=== PATIENT | female | born 1985 | race Caucasian/White ===

== ENCOUNTER 2017-12-28 21:51 | Inpatient (IN) | payer OTHER ==
[2017-12-28] MEDS: ONDANSETRON 4 MG INJ IV (22:07)
[2017-12-28] MEDS: SOD CHLORIDE 0.9% 1,000 ML IV (22:07)
[2017-12-28] MEDS: HYDROmorphONE 1 MG/ML SYG IV (22:07)
[2017-12-28 22:24] LABS: ADD MAN DIFF? NO
[2017-12-28 22:26] LABS: WHITE BLOOD COUNT 11.2 10^3/ul (4.8-10.8)
[2017-12-28 22:26] LABS: BASOPHILS % 0.4 % (0.0-2.0); EOSINOPHILS # 0.2 10^3/ul (0.0-0.5); EOSINOPHILS % 2.2 % (0.0-7.0); HEMATOCRIT 35.6 % (37.0-47.0); HEMOGLOBIN 12.1 g/dl (12.0-16.0); LYMPHOCYTES # 1.2 10^3/ul (0.8-2.9); LYMPHOCYTES % 10.3 % (15.0-51.0); MEAN CORPUSCULAR HEMOGLOBIN 29.7 pg (29.0-33.0); MEAN CORPUSCULAR VOLUME 87.5 fl (82.0-101.0); MEAN PLATELET VOLUME 9.9 fl (7.4-10.4); MONOCYTE # 0.5 10^3/ul (0.3-0.9); MONOCYTES % 4.2 % (0.0-11.0); NEUTROPHIL # 9.2 10^3/ul (1.6-7.5); NEUTROPHILS % 82.6 % (39.0-77.0); PLATELET COUNT 380 10^3/UL (140-415); RED BLOOD COUNT 4.07 10^6/ul (4.20-5.40); RED CELL DISTRIBUTION WIDTH 13.4 % (11.5-14.5)
[2017-12-28 22:44] LABS: ALANINE AMINOTRANSFERASE 48 IU/L (13-69); ALBUMIN 4.2 g/dl (3.3-4.9); ALBUMIN/GLOBULIN RATIO 0.87; ALKALINE PHOSPHATASE 126 IU/L (42-121); ANION GAP 15 (8-16); ASPARTATE AMINO TRANSFERASE 57 IU/L (15-46); BILIRUBIN,INDIRECT 0.3 mg/dl (0-1.1); BILIRUBIN,TOTAL 0.3 mg/dl (0.2-1.3); BLOOD UREA NITROGEN 15 mg/dl (7-20); CALCIUM 9.9 mg/dl (8.4-10.2); CARBON DIOXIDE 29 mmol/L (21-31); CHLORIDE 101 mmol/L (97-110); CREATININE 0.53 mg/dl (0.44-1.00); GLUCOSE 114 mg/dl (70-220); LIPASE 138 U/L (23-300); POTASSIUM 5.3 mmol/L (3.5-5.1); SODIUM 140 mmol/L (135-144)
[2017-12-29] MEDS: HYDROmorphONE 1 MG/ML SYG IV (00:06)
[2017-12-29] MEDS ORDERED: LIDOCAINE 2% VISC 15 ML CUP (00:41)
[2017-12-29] MEDS ORDERED: ACETAMINOPHEN 325 MG TAB PO (01:00)
[2017-12-29] MEDS ORDERED: NACL 0.9% 3 ML SYG IV (01:00)
[2017-12-29] MEDS ORDERED: ONDANSETRON 4 MG INJ IV (01:00)
[2017-12-29] MEDS: LIDOCAINE 2% VISC 15 ML CUP PO (01:23)
[2017-12-29] MEDS: morphine 2 MG INJ IV ×4 (02:29→21:56)
[2017-12-29] MEDS: SOD CHLORIDE 0.9% 1,000 ML IV ×3 (02:30→19:56)
[2017-12-29] MEDS: morphine 4 MG/ML VIAL IV (04:31)
[2017-12-29] MEDS: PANTOPRAZOLE 40 MG INJ IV (05:44)
[2017-12-29 06:15] LABS: ADD MAN DIFF? NO
[2017-12-29 06:19] LABS: WHITE BLOOD COUNT 9.3 10^3/ul (4.8-10.8)
[2017-12-29 06:19] LABS: BASOPHILS % 0.3 % (0.0-2.0); EOSINOPHILS # 0.3 10^3/ul (0.0-0.5); EOSINOPHILS % 3.3 % (0.0-7.0); HEMATOCRIT 35.2 % (37.0-47.0); HEMOGLOBIN 11.4 g/dl (12.0-16.0); LYMPHOCYTES # 1.5 10^3/ul (0.8-2.9); LYMPHOCYTES % 16.1 % (15.0-51.0); MEAN CORPUSCULAR HEMOGLOBIN 28.9 pg (29.0-33.0); MEAN CORPUSCULAR HGB CONC 32.4 g/dl (32.0-37.0); MEAN CORPUSCULAR VOLUME 89.1 fl (82.0-101.0); MEAN PLATELET VOLUME 9.3 fl (7.4-10.4); MONOCYTE # 0.8 10^3/ul (0.3-0.9); MONOCYTES % 8.5 % (0.0-11.0); NEUTROPHIL # 6.7 10^3/ul (1.6-7.5); NEUTROPHILS % 71.7 % (39.0-77.0); PLATELET COUNT 369 10^3/UL (140-415); RED BLOOD COUNT 3.95 10^6/ul (4.20-5.40); RED CELL DISTRIBUTION WIDTH 13.3 % (11.5-14.5)
[2017-12-29 06:45] LABS: ANION GAP 13 (8-16); BILIRUBIN,INDIRECT 0.2 mg/dl (0-1.1); BILIRUBIN,TOTAL 0.2 mg/dl (0.2-1.3); BLOOD UREA NITROGEN 12 mg/dl (7-20); CALCIUM 9.7 mg/dl (8.4-10.2); CARBON DIOXIDE 30 mmol/L (21-31); CHLORIDE 104 mmol/L (97-110); CREATININE 0.54 mg/dl (0.44-1.00); GLUCOSE 112 mg/dl (70-220); HDL CHOLESTEROL 38 mg/dl (34-82); INR 1.03; MAGNESIUM 1.9 mg/dl (1.7-2.5); PARTIAL THROMBOPLASTIN TIME 30.9 Sec (25.0-35.0); POTASSIUM 3.9 mmol/L (3.5-5.1); PROTIME 13.6 Sec (11.9-14.9); PT RATIO 1.1; SODIUM 143 mmol/L (135-144); TOTAL PROTEIN 7.5 g/dl (6.1-8.1)
[2017-12-29 07:40] LABS: ALANINE AMINOTRANSFERASE 51 IU/L (13-69); ALBUMIN 3.7 g/dl (3.3-4.9); ALBUMIN/GLOBULIN RATIO 0.97; ALKALINE PHOSPHATASE 113 IU/L (42-121); ASPARTATE AMINO TRANSFERASE 31 IU/L (15-46); CHOLESTEROL 116 mg/dl (100-200); LDL CHOLESTEROL,CALCULATED 64 mg/dl; TRIGLYCERIDES 72 mg/dl (0-149)
[2017-12-29 08:02] LABS: HEMOGLOBIN A1C 4.8 % (0-5.9)
[2017-12-29] MEDS: SALMETEROL/FLUTICASONE 250/50 INHA INH ×3 (09:00→20:48)
[2017-12-29] MEDS ORDERED: ALBUTEROL/IPRATROPIUM (NEB) 3 ML AMP HHN (09:00)
[2017-12-29] MEDS: KETOROLAC 30 MG INJ IV ×2 (12:11→19:49)
[2017-12-30] MEDS: KETOROLAC 30 MG INJ IV ×3 (03:18→16:56)
[2017-12-30] MEDS: morphine 2 MG INJ IV ×2 (04:46→18:12)
[2017-12-30] MEDS: SOD CHLORIDE 0.9% 1,000 ML IV ×4 (04:47→22:53)
[2017-12-30] MEDS: PANTOPRAZOLE 40 MG INJ IV (05:55)
[2017-12-30 06:31] LABS: ADD MAN DIFF? NO
[2017-12-30 06:35] LABS: BASOPHILS % 0.2 % (0.0-2.0); EOSINOPHILS # 0.2 10^3/ul (0.0-0.5); EOSINOPHILS % 2.1 % (0.0-7.0); HEMATOCRIT 34.7 % (37.0-47.0); HEMOGLOBIN 11.5 g/dl (12.0-16.0); LYMPHOCYTES # 1.4 10^3/ul (0.8-2.9); LYMPHOCYTES % 16.9 % (15.0-51.0); MEAN CORPUSCULAR HEMOGLOBIN 29.6 pg (29.0-33.0); MEAN CORPUSCULAR HGB CONC 33.1 g/dl (32.0-37.0); MEAN CORPUSCULAR VOLUME 89.2 fl (82.0-101.0); MEAN PLATELET VOLUME 9.2 fl (7.4-10.4); MONOCYTE # 0.7 10^3/ul (0.3-0.9); MONOCYTES % 7.7 % (0.0-11.0); NEUTROPHIL # 6.1 10^3/ul (1.6-7.5); NEUTROPHILS % 72.9 % (39.0-77.0); PLATELET COUNT 334 10^3/UL (140-415); RED BLOOD COUNT 3.89 10^6/ul (4.20-5.40); RED CELL DISTRIBUTION WIDTH 13.4 % (11.5-14.5)
[2017-12-30 06:35] LABS: WHITE BLOOD COUNT 8.4 10^3/ul (4.8-10.8)
[2017-12-30 07:06] LABS: ANION GAP 16 (8-16); BLOOD UREA NITROGEN 16 mg/dl (7-20); CALCIUM 9.6 mg/dl (8.4-10.2); CARBON DIOXIDE 29 mmol/L (21-31); CHLORIDE 104 mmol/L (97-110); CREATININE 0.62 mg/dl (0.44-1.00); GLUCOSE 89 mg/dl (70-220); MAGNESIUM 1.9 mg/dl (1.7-2.5); PHOSPHORUS 5.1 mg/dl (2.5-4.9); POTASSIUM 3.9 mmol/L (3.5-5.1); SODIUM 145 mmol/L (135-144)
[2017-12-30] MEDS: HYDROmorphONE 1 MG/ML SYG IV ×4 (07:53→22:51)
[2017-12-30] MEDS: INFLUENZA VIRUS VACCINE 0.5 ML (DISPENSING) IM* (08:43)
[2017-12-30] MEDS: SALMETEROL/FLUTICASONE 250/50 INHA INH ×2 (08:44→22:52)
[2017-12-30] MEDS ORDERED: DIATR MEGLU/DIATRIZOATE SODIUM 120 ML BTL (12:47)
[2017-12-31] MEDS: ONDANSETRON 4 MG INJ IV (02:37)
[2017-12-31] MEDS: KETOROLAC 30 MG INJ IV ×2 (02:39→18:10)
[2017-12-31] MEDS: HYDROmorphONE 1 MG/ML SYG IV ×5 (04:16→20:33)
[2017-12-31] MEDS: PANTOPRAZOLE 40 MG INJ IV (05:29)
[2017-12-31 05:53] LABS: ADD MAN DIFF? NO
[2017-12-31 05:56] LABS: WHITE BLOOD COUNT 8.8 10^3/ul (4.8-10.8)
[2017-12-31 05:56] LABS: BASOPHILS % 0.3 % (0.0-2.0); EOSINOPHILS # 0.2 10^3/ul (0.0-0.5); EOSINOPHILS % 1.9 % (0.0-7.0); HEMATOCRIT 32.8 % (37.0-47.0); HEMOGLOBIN 10.8 g/dl (12.0-16.0); LYMPHOCYTES # 1.7 10^3/ul (0.8-2.9); LYMPHOCYTES % 19.8 % (15.0-51.0); MEAN CORPUSCULAR HEMOGLOBIN 29.3 pg (29.0-33.0); MEAN CORPUSCULAR HGB CONC 32.9 g/dl (32.0-37.0); MEAN CORPUSCULAR VOLUME 88.9 fl (82.0-101.0); MEAN PLATELET VOLUME 9.2 fl (7.4-10.4); MONOCYTE # 0.7 10^3/ul (0.3-0.9); MONOCYTES % 8.2 % (0.0-11.0); NEUTROPHIL # 6.1 10^3/ul (1.6-7.5); NEUTROPHILS % 69.7 % (39.0-77.0); PLATELET COUNT 304 10^3/UL (140-415); RED BLOOD COUNT 3.69 10^6/ul (4.20-5.40); RED CELL DISTRIBUTION WIDTH 13.3 % (11.5-14.5)
[2017-12-31 06:29] LABS: ALBUMIN 3.8 g/dl (3.3-4.9); ANION GAP 17 (8-16); BLOOD UREA NITROGEN 23 mg/dl (7-20); CALCIUM 9.8 mg/dl (8.4-10.2); CARBON DIOXIDE 31 mmol/L (21-31); CHLORIDE 102 mmol/L (97-110); CREATININE 0.61 mg/dl (0.44-1.00); GLUCOSE 86 mg/dl (70-220); MAGNESIUM 1.9 mg/dl (1.7-2.5); PHOSPHORUS 5.2 mg/dl (2.5-4.9); POTASSIUM 3.7 mmol/L (3.5-5.1); SODIUM 146 mmol/L (135-144)
[2017-12-31] MEDS: SALMETEROL/FLUTICASONE 250/50 INHA INH ×2 (08:08→20:05)
[2017-12-31] MEDS: SOD CHLORIDE 0.9% 1,000 ML IV ×2 (11:52→22:39)
[2018-01-01] MEDS: HYDROmorphONE 1 MG/ML SYG IV ×6 (00:40→22:10)
[2018-01-01] MEDS: PANTOPRAZOLE 40 MG INJ IV (05:14)
[2018-01-01 05:55] LABS: ADD MAN DIFF? NO
[2018-01-01 05:56] LABS: BASOPHIL # 0.1 10^3/ul (0.0-0.1); BASOPHILS % 0.7 % (0.0-2.0); EOSINOPHILS # 0.4 10^3/ul (0.0-0.5); EOSINOPHILS % 5.6 % (0.0-7.0); HEMATOCRIT 32.8 % (37.0-47.0); HEMOGLOBIN 10.8 g/dl (12.0-16.0); LYMPHOCYTES # 2.1 10^3/ul (0.8-2.9); LYMPHOCYTES % 28.2 % (15.0-51.0); MEAN CORPUSCULAR HEMOGLOBIN 29.3 pg (29.0-33.0); MEAN CORPUSCULAR HGB CONC 32.9 g/dl (32.0-37.0); MEAN CORPUSCULAR VOLUME 88.9 fl (82.0-101.0); MEAN PLATELET VOLUME 9.5 fl (7.4-10.4); MONOCYTE # 0.7 10^3/ul (0.3-0.9); MONOCYTES % 8.8 % (0.0-11.0); NEUTROPHIL # 4.2 10^3/ul (1.6-7.5); NEUTROPHILS % 56.4 % (39.0-77.0); PLATELET COUNT 296 10^3/UL (140-415); RED BLOOD COUNT 3.69 10^6/ul (4.20-5.40); RED CELL DISTRIBUTION WIDTH 13.1 % (11.5-14.5)
[2018-01-01 05:56] LABS: WHITE BLOOD COUNT 7.5 10^3/ul (4.8-10.8)
[2018-01-01 07:14] LABS: ALBUMIN 3.5 g/dl (3.3-4.9); ANION GAP 15 (8-16); BLOOD UREA NITROGEN 21 mg/dl (7-20); CALCIUM 9.6 mg/dl (8.4-10.2); CARBON DIOXIDE 29 mmol/L (21-31); CHLORIDE 106 mmol/L (97-110); CREATININE 0.53 mg/dl (0.44-1.00); GLUCOSE 61 mg/dl (70-220); MAGNESIUM 1.7 mg/dl (1.7-2.5); PHOSPHORUS 4.5 mg/dl (2.5-4.9); SODIUM 146 mmol/L (135-144)
[2018-01-01] MEDS: SOD CHLORIDE 0.9% 1,000 ML IV ×3 (09:37→21:27)
[2018-01-01] MEDS: SALMETEROL/FLUTICASONE 250/50 INHA INH ×2 (09:42→21:26)
[2018-01-02] MEDS: HYDROmorphONE 1 MG/ML SYG IV ×6 (02:06→22:52)
[2018-01-02] MEDS: ONDANSETRON 4 MG INJ IV (03:27)
[2018-01-02] MEDS: PANTOPRAZOLE 40 MG INJ IV (06:10)
[2018-01-02 08:00] LABS: ADD MAN DIFF? NO
[2018-01-02 08:12] LABS: WHITE BLOOD COUNT 7.9 10^3/ul (4.8-10.8)
[2018-01-02 08:12] LABS: BASOPHIL # 0.1 10^3/ul (0.0-0.1); BASOPHILS % 0.6 % (0.0-2.0); EOSINOPHILS # 0.5 10^3/ul (0.0-0.5); EOSINOPHILS % 5.8 % (0.0-7.0); HEMATOCRIT 31.5 % (37.0-47.0); HEMOGLOBIN 10.6 g/dl (12.0-16.0); LYMPHOCYTES # 1.6 10^3/ul (0.8-2.9); LYMPHOCYTES % 20.6 % (15.0-51.0); MEAN CORPUSCULAR HEMOGLOBIN 29.1 pg (29.0-33.0); MEAN CORPUSCULAR HGB CONC 33.7 g/dl (32.0-37.0); MEAN CORPUSCULAR VOLUME 86.5 fl (82.0-101.0); MEAN PLATELET VOLUME 9.4 fl (7.4-10.4); MONOCYTE # 0.7 10^3/ul (0.3-0.9); MONOCYTES % 8.8 % (0.0-11.0); NEUTROPHIL # 5.1 10^3/ul (1.6-7.5); NEUTROPHILS % 63.9 % (39.0-77.0); PLATELET COUNT 276 10^3/UL (140-415); RED BLOOD COUNT 3.64 10^6/ul (4.20-5.40); RED CELL DISTRIBUTION WIDTH 12.8 % (11.5-14.5)
[2018-01-02 09:03] LABS: ANION GAP 17 (8-16); BLOOD UREA NITROGEN 9 mg/dl (7-20); CALCIUM 9.1 mg/dl (8.4-10.2); CARBON DIOXIDE 25 mmol/L (21-31); CHLORIDE 103 mmol/L (97-110); CREATININE 0.51 mg/dl (0.44-1.00); MAGNESIUM 1.3 mg/dl (1.7-2.5); PHOSPHORUS 4.1 mg/dl (2.5-4.9); SODIUM 141 mmol/L (135-144)
[2018-01-02 09:06] LABS: GLUCOSE 50 mg/dl (70-220)
[2018-01-02] MEDS: SALMETEROL/FLUTICASONE 250/50 INHA INH ×2 (10:02→21:50)
[2018-01-02] MEDS: DEXTROSE 5%-0.45% NACL 1,000 ML IV ×2 (10:10→21:51)
[2018-01-02] MEDS: MAGNESIUM SULFATE 2 GM/50 ML 50 ML IVPB (13:54)
[2018-01-02] MEDS: SOD CHLORIDE 0.9% 1,000 ML IV (14:33)
[2018-01-02] MEDS ORDERED: VITAMIN A & D 5 GM OINT PACKET TOP (19:52)
[2018-01-03] MEDS: HYDROmorphONE 1 MG/ML SYG IV ×5 (02:56→20:15)
[2018-01-03] MEDS: ACETAMINOPHEN 1000MG/100ML IV 100 ML IVPB (03:58)
[2018-01-03] MEDS: DEXTROSE 5%-0.45% NACL 1,000 ML IV ×2 (05:29→09:57)
[2018-01-03] MEDS: PANTOPRAZOLE 40 MG INJ IV (06:03)
[2018-01-03 06:44] LABS: ADD MAN DIFF? NO
[2018-01-03 06:48] LABS: BASOPHILS % 0.4 % (0.0-2.0); EOSINOPHILS # 0.6 10^3/ul (0.0-0.5); EOSINOPHILS % 7.8 % (0.0-7.0); HEMATOCRIT 31.8 % (37.0-47.0); HEMOGLOBIN 10.9 g/dl (12.0-16.0); LYMPHOCYTES # 1.5 10^3/ul (0.8-2.9); LYMPHOCYTES % 21.8 % (15.0-51.0); MEAN CORPUSCULAR HEMOGLOBIN 29.2 pg (29.0-33.0); MEAN CORPUSCULAR HGB CONC 34.3 g/dl (32.0-37.0); MEAN CORPUSCULAR VOLUME 85.3 fl (82.0-101.0); MEAN PLATELET VOLUME 9.7 fl (7.4-10.4); MONOCYTE # 0.7 10^3/ul (0.3-0.9); MONOCYTES % 9.8 % (0.0-11.0); NEUTROPHIL # 4.2 10^3/ul (1.6-7.5); NEUTROPHILS % 60.1 % (39.0-77.0); PLATELET COUNT 287 10^3/UL (140-415); RED BLOOD COUNT 3.73 10^6/ul (4.20-5.40); RED CELL DISTRIBUTION WIDTH 12.7 % (11.5-14.5)
[2018-01-03 06:48] LABS: WHITE BLOOD COUNT 7.1 10^3/ul (4.8-10.8)
[2018-01-03 07:28] LABS: ANION GAP 13 (8-16); BLOOD UREA NITROGEN 3 mg/dl (7-20); CALCIUM 8.8 mg/dl (8.4-10.2); CARBON DIOXIDE 28 mmol/L (21-31); CHLORIDE 101 mmol/L (97-110); CREATININE 0.44 mg/dl (0.44-1.00); GLUCOSE 114 mg/dl (70-220); MAGNESIUM 1.6 mg/dl (1.7-2.5); PHOSPHORUS 4.2 mg/dl (2.5-4.9); POTASSIUM 3.3 mmol/L (3.5-5.1); SODIUM 139 mmol/L (135-144)
[2018-01-03] MEDS: SALMETEROL/FLUTICASONE 250/50 INHA INH ×2 (09:57→20:15)
[2018-01-03] MEDS ORDERED: POTASSIUM CHLORIDE 50 ML IVPB (13:00)
[2018-01-03] MEDS: MAGNESIUM SULFATE 2 GM/50 ML 50 ML IVPB (14:25)
[2018-01-03] MEDS: ONDANSETRON 4 MG INJ IV ×2 (14:42→20:54)
[2018-01-03] MEDS: POTASSIUM CHLORIDE 40 MEQ in DEXTROSE 5% 250 ML IVPB (16:39)
[2018-01-04] MEDS: DEXTROSE 5%-0.45% NACL 1,000 ML IV ×4 (00:19→21:33)
[2018-01-04] MEDS: HYDROmorphONE 1 MG/ML SYG IV ×6 (00:20→22:00)
[2018-01-04] MEDS: ONDANSETRON 4 MG INJ IV ×3 (05:36→17:56)
[2018-01-04] MEDS: PANTOPRAZOLE 40 MG INJ IV ×2 (05:36→17:58)
[2018-01-04] MEDS: SALMETEROL/FLUTICASONE 250/50 INHA INH ×2 (09:39→20:13)
[2018-01-04] MEDS: DIPHENHYDRAMINE 50 MG INJ IV (20:33)
[2018-01-05] MEDS: HYDROmorphONE 1 MG/ML SYG IV ×5 (02:41→20:14)
[2018-01-05] MEDS: DIPHENHYDRAMINE 50 MG INJ IV ×3 (04:00→21:28)
[2018-01-05] MEDS: PANTOPRAZOLE 40 MG INJ IV ×2 (05:31→16:53)
[2018-01-05 06:01] LABS: ADD MAN DIFF? NO
[2018-01-05 06:03] LABS: BASOPHILS % 0.3 % (0.0-2.0); EOSINOPHILS # 0.5 10^3/ul (0.0-0.5); EOSINOPHILS % 8.6 % (0.0-7.0); HEMOGLOBIN 11.2 g/dl (12.0-16.0); LYMPHOCYTES # 1.5 10^3/ul (0.8-2.9); LYMPHOCYTES % 24.3 % (15.0-51.0); MEAN CORPUSCULAR HEMOGLOBIN 29.6 pg (29.0-33.0); MEAN CORPUSCULAR HGB CONC 33.9 g/dl (32.0-37.0); MEAN CORPUSCULAR VOLUME 87.1 fl (82.0-101.0); MEAN PLATELET VOLUME 10.2 fl (7.4-10.4); MONOCYTE # 0.6 10^3/ul (0.3-0.9); MONOCYTES % 9.9 % (0.0-11.0); NEUTROPHIL # 3.5 10^3/ul (1.6-7.5); NEUTROPHILS % 56.7 % (39.0-77.0); PLATELET COUNT 306 10^3/UL (140-415); RED BLOOD COUNT 3.79 10^6/ul (4.20-5.40); RED CELL DISTRIBUTION WIDTH 13.1 % (11.5-14.5)
[2018-01-05 06:03] LABS: WHITE BLOOD COUNT 6.2 10^3/ul (4.8-10.8)
[2018-01-05 06:35] LABS: CARBON DIOXIDE 30 mmol/L (21-31); CHLORIDE 102 mmol/L (97-110); CREATININE 0.54 mg/dl (0.44-1.00); GLUCOSE 110 mg/dl (70-220); MAGNESIUM 1.4 mg/dl (1.7-2.5); PHOSPHORUS 4.3 mg/dl (2.5-4.9); SODIUM 142 mmol/L (135-144)
[2018-01-05 06:44] LABS: BLOOD UREA NITROGEN < 2 mg/dl (7-20)
[2018-01-05 06:51] LABS: ANION GAP 13 (8-16)
[2018-01-05 06:55] LABS: POTASSIUM 3.4 mmol/L (3.5-5.1)
[2018-01-05] MEDS: DEXTROSE 5%-0.45% NACL 1,000 ML IV ×2 (08:33→16:52)
[2018-01-05] MEDS: SALMETEROL/FLUTICASONE 250/50 INHA INH ×2 (08:33→20:15)
[2018-01-05] MEDS ORDERED: POTASSIUM CHLORIDE 40 MEQ in DEXTROSE 5% 250 ML IVPB (10:00)
[2018-01-05] MEDS: POTASSIUM CHLORIDE 40 MEQ in DEXTROSE 5% 250 ML IVPB (10:38)
[2018-01-05] MEDS ORDERED: VITAMIN A & D 5 GM OINT PACKET TOP (21:51)
[2018-01-06] MEDS: DEXTROSE 5%-0.45% NACL 1,000 ML IV ×2 (01:24→12:34)
[2018-01-06] MEDS: HYDROmorphONE 1 MG/ML SYG IV ×5 (01:24→20:27)
[2018-01-06] MEDS: PANTOPRAZOLE 40 MG INJ IV ×2 (05:23→17:40)
[2018-01-06 05:44] LABS: ADD MAN DIFF? NO
[2018-01-06 05:47] LABS: WHITE BLOOD COUNT 5.5 10^3/ul (4.8-10.8)
[2018-01-06 05:47] LABS: BASOPHILS % 0.5 % (0.0-2.0); EOSINOPHILS # 0.6 10^3/ul (0.0-0.5); EOSINOPHILS % 11.6 % (0.0-7.0); HEMATOCRIT 35.6 % (37.0-47.0); HEMOGLOBIN 11.8 g/dl (12.0-16.0); LYMPHOCYTES # 1.9 10^3/ul (0.8-2.9); LYMPHOCYTES % 33.6 % (15.0-51.0); MEAN CORPUSCULAR HEMOGLOBIN 28.9 pg (29.0-33.0); MEAN CORPUSCULAR HGB CONC 33.1 g/dl (32.0-37.0); MEAN PLATELET VOLUME 10.1 fl (7.4-10.4); MONOCYTE # 0.6 10^3/ul (0.3-0.9); MONOCYTES % 11.6 % (0.0-11.0); NEUTROPHIL # 2.4 10^3/ul (1.6-7.5); NEUTROPHILS % 42.5 % (39.0-77.0); PLATELET COUNT 311 10^3/UL (140-415); RED BLOOD COUNT 4.09 10^6/ul (4.20-5.40); RED CELL DISTRIBUTION WIDTH 13.2 % (11.5-14.5)
[2018-01-06 06:11] LABS: ANION GAP 13 (8-16); BLOOD UREA NITROGEN 2 mg/dl (7-20); CARBON DIOXIDE 29 mmol/L (21-31); CHLORIDE 104 mmol/L (97-110); CREATININE 0.51 mg/dl (0.44-1.00); GLUCOSE 102 mg/dl (70-220); MAGNESIUM 1.5 mg/dl (1.7-2.5); PHOSPHORUS 4.3 mg/dl (2.5-4.9); POTASSIUM 3.6 mmol/L (3.5-5.1); SODIUM 142 mmol/L (135-144)
[2018-01-06] MEDS: DIPHENHYDRAMINE 50 MG INJ IV ×3 (06:36→18:49)
[2018-01-06] MEDS: SALMETEROL/FLUTICASONE 250/50 INHA INH ×3 (09:00→20:27)
[2018-01-06] MEDS ORDERED: POTASSIUM CHLORIDE 50 ML IVPB (11:00)
[2018-01-06] MEDS: MAGNESIUM SULFATE 2 GM/50 ML 50 ML IVPB (12:34)
[2018-01-06] MEDS: POTASSIUM CHLORIDE 40 MEQ in SOD CHLORIDE 0.9% 250 ML IV (14:24)
[2018-01-07] MEDS: HYDROmorphONE 1 MG/ML SYG IV ×5 (02:08→19:50)
[2018-01-07] MEDS: DEXTROSE 5%-0.45% NACL 1,000 ML IV ×3 (05:21→19:57)
[2018-01-07] MEDS: PANTOPRAZOLE 40 MG INJ IV ×2 (05:21→17:25)
[2018-01-07] MEDS: DIPHENHYDRAMINE 50 MG INJ IV ×3 (05:23→21:32)
[2018-01-07 07:14] LABS: ALBUMIN 3.6 g/dl (3.3-4.9); ANION GAP 13 (8-16); BLOOD UREA NITROGEN 3 mg/dl (7-20); CALCIUM 9.3 mg/dl (8.4-10.2); CARBON DIOXIDE 29 mmol/L (21-31); CHLORIDE 102 mmol/L (97-110); CREATININE 0.54 mg/dl (0.44-1.00); GLUCOSE 96 mg/dl (70-220); MAGNESIUM 1.7 mg/dl (1.7-2.5); PHOSPHORUS 4.7 mg/dl (2.5-4.9); POTASSIUM 3.3 mmol/L (3.5-5.1); SODIUM 141 mmol/L (135-144)
[2018-01-07] MEDS: SALMETEROL/FLUTICASONE 250/50 INHA INH ×2 (08:33→20:00)
[2018-01-07] MEDS ORDERED: POTASSIUM CHLORIDE 50 ML IVPB (14:00)
[2018-01-07] MEDS: NA PHOSPHATE/BIPHOS 133 ML ENEMA PR (14:04)
[2018-01-07] MEDS: KCL 40 MEQ in NS 250 ML IVPB X1 IVPB (15:15)
[2018-01-07] MEDS ORDERED: VITAMIN A & D 5 GM OINT PACKET TOP (15:34)
[2018-01-08] MEDS: HYDROmorphONE 1 MG/ML SYG IV ×5 (03:34→22:22)
[2018-01-08] MEDS: PANTOPRAZOLE 40 MG INJ IV ×2 (05:38→17:07)
[2018-01-08] MEDS: DEXTROSE 5%-0.45% NACL 1,000 ML IV ×3 (05:40→21:27)
[2018-01-08 07:03] LABS: ALBUMIN 3.3 g/dl (3.3-4.9); ANION GAP 12 (8-16); BLOOD UREA NITROGEN 2 mg/dl (7-20); CARBON DIOXIDE 28 mmol/L (21-31); CHLORIDE 105 mmol/L (97-110); CREATININE 0.49 mg/dl (0.44-1.00); GLUCOSE 105 mg/dl (70-220); MAGNESIUM 1.5 mg/dl (1.7-2.5); PHOSPHORUS 4.5 mg/dl (2.5-4.9); POTASSIUM 3.6 mmol/L (3.5-5.1); SODIUM 141 mmol/L (135-144)
[2018-01-08] MEDS: SALMETEROL/FLUTICASONE 250/50 INHA INH ×2 (08:25→21:24)
[2018-01-08] MEDS: DIPHENHYDRAMINE 50 MG INJ IV ×2 (10:28→21:24)
[2018-01-08] MEDS: MAGNESIUM SULFATE 2 GM/50 ML 50 ML IVPB (11:43)
[2018-01-08] MEDS: MAGNESIUM CITRATE 300 ML BTL PO (17:05)
[2018-01-09] MEDS: HYDROmorphONE 1 MG/ML SYG IV ×5 (02:24→19:55)
[2018-01-09] MEDS: DIPHENHYDRAMINE 50 MG INJ IV ×3 (04:38→21:36)
[2018-01-09] MEDS: PANTOPRAZOLE 40 MG INJ IV ×2 (04:38→17:46)
[2018-01-09 07:11] LABS: ALBUMIN 3.7 g/dl (3.3-4.9); ANION GAP 15 (8-16); BLOOD UREA NITROGEN 2 mg/dl (7-20); CALCIUM 9.2 mg/dl (8.4-10.2); CARBON DIOXIDE 29 mmol/L (21-31); CHLORIDE 101 mmol/L (97-110); CREATININE 0.51 mg/dl (0.44-1.00); GLUCOSE 88 mg/dl (70-220); MAGNESIUM 1.9 mg/dl (1.7-2.5); PHOSPHORUS 3.8 mg/dl (2.5-4.9); POTASSIUM 3.8 mmol/L (3.5-5.1); SODIUM 141 mmol/L (135-144)
[2018-01-09] MEDS: SALMETEROL/FLUTICASONE 250/50 INHA INH ×2 (09:41→20:00)
[2018-01-10] MEDS: HYDROmorphONE 1 MG/ML SYG IV ×4 (00:47→22:25)
[2018-01-10] MEDS: PANTOPRAZOLE 40 MG INJ IV ×2 (05:17→17:34)
[2018-01-10 07:08] LABS: ANION GAP 12 (8-16); BLOOD UREA NITROGEN 3 mg/dl (7-20); CALCIUM 9.6 mg/dl (8.4-10.2); CARBON DIOXIDE 30 mmol/L (21-31); CHLORIDE 105 mmol/L (97-110); CREATININE 0.54 mg/dl (0.44-1.00); GLUCOSE 83 mg/dl (70-220); MAGNESIUM 1.7 mg/dl (1.7-2.5); PHOSPHORUS 5.4 mg/dl (2.5-4.9); POTASSIUM 4.3 mmol/L (3.5-5.1); SODIUM 143 mmol/L (135-144)
[2018-01-10] MEDS: DIPHENHYDRAMINE 50 MG INJ IV ×2 (07:57→21:03)
[2018-01-10] MEDS: SALMETEROL/FLUTICASONE 250/50 INHA INH ×2 (07:57→20:21)
[2018-01-11] MEDS: HYDROmorphONE 1 MG/ML SYG IV ×5 (03:28→21:41)
[2018-01-11] MEDS: PANTOPRAZOLE 40 MG INJ IV ×2 (05:34→17:00)
[2018-01-11] MEDS: SALMETEROL/FLUTICASONE 250/50 INHA INH ×2 (08:31→20:45)
[2018-01-11] MEDS: DIPHENHYDRAMINE 50 MG INJ IV ×3 (09:45→23:14)
[2018-01-12] MEDS: PANTOPRAZOLE 40 MG INJ IV ×2 (05:42→17:22)
[2018-01-12] MEDS: HYDROmorphONE 1 MG/ML SYG IV ×3 (06:13→20:01)
[2018-01-12] MEDS: DIPHENHYDRAMINE 50 MG INJ IV ×2 (08:24→15:11)
[2018-01-12] MEDS: SALMETEROL/FLUTICASONE 250/50 INHA INH ×2 (08:24→21:53)
[2018-01-12] MEDS: HYDROmorphONE 0.5 MG/0.5 ML SYG IV (12:36)
[2018-01-12] MEDS: ONDANSETRON 4 MG INJ IV (16:30)
[2018-01-12] MEDS: SOD CHLORIDE 0.9% 1,000 ML IV (20:02)
[2018-01-12] MEDS: DOCUSATE SODIUM 100 MG CAP PO (21:53)
[2018-01-13] MEDS: HYDROmorphONE 1 MG/ML SYG IV ×2 (02:31→06:34)
[2018-01-13] MEDS: PANTOPRAZOLE 40 MG INJ IV ×2 (06:34→17:45)
[2018-01-13] MEDS: SALMETEROL/FLUTICASONE 250/50 INHA INH ×2 (09:03→21:14)
[2018-01-13] MEDS: DIPHENHYDRAMINE 50 MG INJ IV ×2 (09:04→15:36)
[2018-01-13] MEDS: DOCUSATE SODIUM 100 MG CAP PO ×2 (09:04→21:00)
[2018-01-13] MEDS: SOD CHLORIDE 0.9% 1,000 ML IV ×2 (09:04→21:00)
[2018-01-13] MEDS: HYDROmorphONE 2 MG/ML SYG IV ×3 (14:05→22:45)
[2018-01-13] MEDS ORDERED: VITAMIN A & D 5 GM OINT PACKET TOP (16:22)
[2018-01-13] MEDS: LORAZEPAM 2 MG INJ IV (22:11)
[2018-01-14] MEDS: DIPHENHYDRAMINE 50 MG INJ IV ×4 (00:09→20:57)
[2018-01-14] MEDS: SOD CHLORIDE 0.9% 1,000 ML IV (00:09)
[2018-01-14] MEDS: PANTOPRAZOLE 40 MG INJ IV ×2 (05:22→17:41)
[2018-01-14] MEDS: HYDROmorphONE 2 MG/ML SYG IV (06:05)
[2018-01-14] MEDS: ONDANSETRON 4 MG INJ IV (06:05)
[2018-01-14 06:09] LABS: ADD MAN DIFF? NO
[2018-01-14 06:24] LABS: WHITE BLOOD COUNT 6.2 10^3/ul (4.8-10.8)
[2018-01-14 06:24] LABS: BASOPHILS % 0.6 % (0.0-2.0); EOSINOPHILS # 0.6 10^3/ul (0.0-0.5); EOSINOPHILS % 9.8 % (0.0-7.0); HEMATOCRIT 35.1 % (37.0-47.0); HEMOGLOBIN 11.5 g/dl (12.0-16.0); LYMPHOCYTES # 1.9 10^3/ul (0.8-2.9); LYMPHOCYTES % 30.8 % (15.0-51.0); MEAN CORPUSCULAR HEMOGLOBIN 28.8 pg (29.0-33.0); MEAN CORPUSCULAR HGB CONC 32.8 g/dl (32.0-37.0); MEAN PLATELET VOLUME 9.5 fl (7.4-10.4); MONOCYTE # 0.6 10^3/ul (0.3-0.9); MONOCYTES % 10.3 % (0.0-11.0); NEUTROPHILS % 48.3 % (39.0-77.0); PLATELET COUNT 266 10^3/UL (140-415); RED BLOOD COUNT 3.99 10^6/ul (4.20-5.40); RED CELL DISTRIBUTION WIDTH 13.2 % (11.5-14.5)
[2018-01-14 07:00] LABS: BLOOD UREA NITROGEN 6 mg/dl (7-20); CALCIUM 9.5 mg/dl (8.4-10.2); CARBON DIOXIDE 25 mmol/L (21-31); CHLORIDE 107 mmol/L (97-110); CREATININE 0.51 mg/dl (0.44-1.00); GLUCOSE 85 mg/dl (70-220); MAGNESIUM 1.4 mg/dl (1.7-2.5); PHOSPHORUS 4.8 mg/dl (2.5-4.9); SODIUM 140 mmol/L (135-144)
[2018-01-14 07:47] LABS: ANION GAP 12 (8-16); POTASSIUM 4.1 mmol/L (3.5-5.1)
[2018-01-14] MEDS: DOCUSATE SODIUM 100 MG CAP PO ×2 (08:37→20:55)
[2018-01-14] MEDS: SALMETEROL/FLUTICASONE 250/50 INHA INH ×2 (08:38→20:55)
[2018-01-14] MEDS: MAGNESIUM SULFATE 2 GM/50 ML 50 ML IVPB (13:13)
[2018-01-14] MEDS: HYDROmorphONE 0.5 MG/0.5 ML SYG IV ×3 (13:14→22:17)
[2018-01-14] MEDS: DEXTROSE 5%-0.45% NACL 1,000 ML IV (16:01)
[2018-01-15] MEDS: HYDROmorphONE 0.5 MG/0.5 ML SYG IV ×4 (04:02→21:31)
[2018-01-15] MEDS: DEXTROSE 5%-0.45% NACL 1,000 ML IV ×2 (04:04→17:36)
[2018-01-15] MEDS: PANTOPRAZOLE 40 MG INJ IV ×2 (05:22→17:36)
[2018-01-15 06:37] LABS: ADD MAN DIFF? NO
[2018-01-15 06:41] LABS: BASOPHILS % 0.6 % (0.0-2.0); EOSINOPHILS # 0.6 10^3/ul (0.0-0.5); EOSINOPHILS % 12.1 % (0.0-7.0); HEMATOCRIT 35.1 % (37.0-47.0); HEMOGLOBIN 11.5 g/dl (12.0-16.0); LYMPHOCYTES # 1.6 10^3/ul (0.8-2.9); LYMPHOCYTES % 31.3 % (15.0-51.0); MEAN CORPUSCULAR HGB CONC 32.8 g/dl (32.0-37.0); MEAN CORPUSCULAR VOLUME 88.4 fl (82.0-101.0); MEAN PLATELET VOLUME 9.6 fl (7.4-10.4); MONOCYTE # 0.5 10^3/ul (0.3-0.9); MONOCYTES % 9.1 % (0.0-11.0); NEUTROPHIL # 2.3 10^3/ul (1.6-7.5); NEUTROPHILS % 46.9 % (39.0-77.0); PLATELET COUNT 291 10^3/UL (140-415); RED BLOOD COUNT 3.97 10^6/ul (4.20-5.40); RED CELL DISTRIBUTION WIDTH 13.1 % (11.5-14.5)
[2018-01-15 07:09] LABS: ANION GAP 13 (8-16); BLOOD UREA NITROGEN 4 mg/dl (7-20); CALCIUM 9.6 mg/dl (8.4-10.2); CARBON DIOXIDE 31 mmol/L (21-31); CHLORIDE 104 mmol/L (97-110); GLUCOSE 95 mg/dl (70-220); MAGNESIUM 1.7 mg/dl (1.7-2.5); PHOSPHORUS 4.9 mg/dl (2.5-4.9); POTASSIUM 4.7 mmol/L (3.5-5.1); SODIUM 143 mmol/L (135-144)
[2018-01-15] MEDS: SALMETEROL/FLUTICASONE 250/50 INHA INH ×2 (08:55→22:13)
[2018-01-15] MEDS: DOCUSATE SODIUM 100 MG CAP PO ×2 (08:55→21:30)
[2018-01-15] MEDS: DIPHENHYDRAMINE 50 MG INJ IV ×3 (09:52→23:46)
[2018-01-16] MEDS: HYDROmorphONE 0.5 MG/0.5 ML SYG IV ×6 (02:00→19:58)
[2018-01-16] MEDS: DEXTROSE 5%-0.45% NACL 1,000 ML IV ×2 (06:00→17:55)
[2018-01-16] MEDS: PANTOPRAZOLE 40 MG INJ IV ×2 (06:10→17:55)
[2018-01-16] MEDS: SALMETEROL/FLUTICASONE 250/50 INHA INH ×2 (09:18→20:36)
[2018-01-16] MEDS: DOCUSATE SODIUM 100 MG CAP PO ×2 (09:18→20:35)
[2018-01-16] MEDS: DIPHENHYDRAMINE 50 MG INJ IV ×2 (12:19→18:37)
[2018-01-17] MEDS: HYDROmorphONE 0.5 MG/0.5 ML SYG IV ×6 (00:41→21:28)
[2018-01-17] MEDS: PANTOPRAZOLE 40 MG INJ IV ×2 (05:25→17:46)
[2018-01-17] MEDS: DIPHENHYDRAMINE 50 MG INJ IV ×2 (06:01→22:18)
[2018-01-17] MEDS: DEXTROSE 5%-0.45% NACL 1,000 ML IV ×3 (06:01→19:49)
[2018-01-17] MEDS: DOCUSATE SODIUM 100 MG CAP PO ×3 (08:31→20:58)
[2018-01-17] MEDS: SALMETEROL/FLUTICASONE 250/50 INHA INH ×2 (08:31→20:57)
[2018-01-17] MEDS: ONDANSETRON 4 MG INJ IV (12:50)
[2018-01-18] MEDS: HYDROmorphONE 0.5 MG/0.5 ML SYG IV ×6 (01:31→22:44)
[2018-01-18] MEDS: ONDANSETRON 4 MG INJ IV ×2 (04:52→09:17)
[2018-01-18] MEDS: PANTOPRAZOLE 40 MG INJ IV ×2 (05:45→17:30)
[2018-01-18] MEDS: DOCUSATE SODIUM 100 MG CAP PO ×2 (09:00→20:40)
[2018-01-18] MEDS: SALMETEROL/FLUTICASONE 250/50 INHA INH ×2 (09:17→20:41)
[2018-01-18] MEDS: DEXTROSE 5%-0.45% NACL 1,000 ML IV (09:20)
[2018-01-18] MEDS: DIPHENHYDRAMINE 50 MG INJ IV ×2 (16:53→23:51)
[2018-01-19] MEDS: DEXTROSE 5%-0.45% NACL 1,000 ML IV ×2 (05:14→21:23)
[2018-01-19] MEDS: PANTOPRAZOLE 40 MG INJ IV ×2 (05:21→17:21)
[2018-01-19 06:06] LABS: ADD MAN DIFF? NO
[2018-01-19 06:14] LABS: WHITE BLOOD COUNT 11.9 10^3/ul (4.8-10.8)
[2018-01-19 06:14] LABS: BASOPHILS % 0.3 % (0.0-2.0); EOSINOPHILS # 0.6 10^3/ul (0.0-0.5); EOSINOPHILS % 4.6 % (0.0-7.0); HEMATOCRIT 33.6 % (37.0-47.0); HEMOGLOBIN 11.4 g/dl (12.0-16.0); LYMPHOCYTES # 1.7 10^3/ul (0.8-2.9); LYMPHOCYTES % 14.3 % (15.0-51.0); MEAN CORPUSCULAR HEMOGLOBIN 28.7 pg (29.0-33.0); MEAN CORPUSCULAR HGB CONC 33.9 g/dl (32.0-37.0); MEAN CORPUSCULAR VOLUME 84.6 fl (82.0-101.0); MEAN PLATELET VOLUME 9.7 fl (7.4-10.4); MONOCYTE # 0.8 10^3/ul (0.3-0.9); MONOCYTES % 6.4 % (0.0-11.0); NEUTROPHIL # 8.8 10^3/ul (1.6-7.5); NEUTROPHILS % 74.2 % (39.0-77.0); PLATELET COUNT 243 10^3/UL (140-415); RED BLOOD COUNT 3.97 10^6/ul (4.20-5.40); RED CELL DISTRIBUTION WIDTH 13.1 % (11.5-14.5)
[2018-01-19 06:50] LABS: ANION GAP 13 (8-16); BLOOD UREA NITROGEN 4 mg/dl (7-20); CARBON DIOXIDE 29 mmol/L (21-31); CHLORIDE 104 mmol/L (97-110); CREATININE 0.54 mg/dl (0.44-1.00); GLUCOSE 104 mg/dl (70-220); MAGNESIUM 1.3 mg/dl (1.7-2.5); PHOSPHORUS 3.7 mg/dl (2.5-4.9); POTASSIUM 3.7 mmol/L (3.5-5.1); SODIUM 142 mmol/L (135-144)
[2018-01-19] MEDS: HYDROmorphONE 0.5 MG/0.5 ML SYG IV ×4 (07:52→23:17)
[2018-01-19] MEDS: DOCUSATE SODIUM 100 MG CAP PO ×2 (08:46→21:00)
[2018-01-19] MEDS: SALMETEROL/FLUTICASONE 250/50 INHA INH ×2 (08:46→21:23)
[2018-01-19] MEDS: MAGNESIUM SULFATE 2 GM/50 ML 50 ML IVPB (11:30)
[2018-01-19] MEDS: DIPHENHYDRAMINE 50 MG INJ IV (21:42)
[2018-01-19] MEDS: ONDANSETRON 4 MG INJ IV (23:17)
[2018-01-20] MEDS: PANTOPRAZOLE 40 MG INJ IV ×2 (03:55→17:54)
[2018-01-20] MEDS: HYDROmorphONE 0.5 MG/0.5 ML SYG IV ×4 (03:56→17:54)
[2018-01-20 06:44] LABS: ADD MAN DIFF? NO
[2018-01-20 06:55] LABS: HEMOGLOBIN 11.1 g/dl (12.0-16.0); MEAN CORPUSCULAR VOLUME 85.9 fl (82.0-101.0)
[2018-01-20 07:03] LABS: BASOPHILS % 0.6 % (0.0-2.0); EOSINOPHILS # 0.8 10^3/ul (0.0-0.5); EOSINOPHILS % 12.3 % (0.0-7.0); LYMPHOCYTES # 2.3 10^3/ul (0.8-2.9); LYMPHOCYTES % 34.4 % (15.0-51.0); MEAN CORPUSCULAR HEMOGLOBIN 28.9 pg (29.0-33.0); MEAN CORPUSCULAR HGB CONC 33.6 g/dl (32.0-37.0); MEAN PLATELET VOLUME 9.7 fl (7.4-10.4); MONOCYTE # 0.6 10^3/ul (0.3-0.9); MONOCYTES % 8.5 % (0.0-11.0); NEUTROPHILS % 44.2 % (39.0-77.0); PLATELET COUNT 255 10^3/UL (140-415); RED BLOOD COUNT 3.84 10^6/ul (4.20-5.40); RED CELL DISTRIBUTION WIDTH 12.9 % (11.5-14.5)
[2018-01-20 07:03] LABS: WHITE BLOOD COUNT 6.7 10^3/ul (4.8-10.8)
[2018-01-20 07:14] LABS: ANION GAP 14 (8-16); BLOOD UREA NITROGEN 4 mg/dl (7-20); CARBON DIOXIDE 31 mmol/L (21-31); CHLORIDE 103 mmol/L (97-110); CREATININE 0.55 mg/dl (0.44-1.00); GLUCOSE 98 mg/dl (70-220); MAGNESIUM 1.7 mg/dl (1.7-2.5); POTASSIUM 3.5 mmol/L (3.5-5.1); SODIUM 144 mmol/L (135-144)
[2018-01-20] MEDS: DOCUSATE SODIUM 100 MG CAP PO ×2 (08:41→20:46)
[2018-01-20] MEDS: SALMETEROL/FLUTICASONE 250/50 INHA INH ×2 (08:41→20:46)
[2018-01-20] MEDS: DEXTROSE 5%-0.45% NACL 1,000 ML IV ×2 (08:42→21:30)
[2018-01-20] MEDS: DIPHENHYDRAMINE 50 MG INJ IV ×2 (09:24→15:39)
[2018-01-21] MEDS: HYDROmorphONE 0.5 MG/0.5 ML SYG IV ×5 (02:31→21:20)
[2018-01-21] MEDS: DIPHENHYDRAMINE 50 MG INJ IV ×2 (04:09→14:29)
[2018-01-21] MEDS: PANTOPRAZOLE 40 MG INJ IV ×2 (04:51→17:21)
[2018-01-21] MEDS: DEXTROSE 5%-0.45% NACL 1,000 ML IV ×2 (07:37→21:20)
[2018-01-21] MEDS: DOCUSATE SODIUM 100 MG CAP PO ×2 (08:46→21:00)
[2018-01-21] MEDS: SALMETEROL/FLUTICASONE 250/50 INHA INH ×2 (08:48→21:20)
[2018-01-22] MEDS: HYDROmorphONE 0.5 MG/0.5 ML SYG IV ×5 (01:41→20:21)
[2018-01-22] MEDS ORDERED: VITAMIN A & D 5 GM OINT PACKET TOP (02:05)
[2018-01-22] MEDS: DIPHENHYDRAMINE 50 MG INJ IV ×2 (03:16→16:57)
[2018-01-22] MEDS: PANTOPRAZOLE 40 MG INJ IV ×2 (05:07→16:58)
[2018-01-22] MEDS: DOCUSATE SODIUM 100 MG CAP PO ×2 (09:00→20:21)
[2018-01-22] MEDS: SALMETEROL/FLUTICASONE 250/50 INHA INH ×2 (09:18→20:21)
[2018-01-22] MEDS: DEXTROSE 5%-0.45% NACL 1,000 ML IV ×2 (10:59→23:29)
[2018-01-23] MEDS: HYDROmorphONE 0.5 MG/0.5 ML SYG IV ×5 (00:41→22:39)
[2018-01-23] MEDS: PANTOPRAZOLE 40 MG INJ IV ×2 (05:34→17:48)
[2018-01-23 07:44] LABS: ALBUMIN 3.4 g/dl (3.3-4.9); ANION GAP 12 (8-16); BLOOD UREA NITROGEN 2 mg/dl (7-20); CALCIUM 8.8 mg/dl (8.4-10.2); CARBON DIOXIDE 32 mmol/L (21-31); CHLORIDE 104 mmol/L (97-110); CREATININE 0.47 mg/dl (0.44-1.00); GLUCOSE 104 mg/dl (70-220); MAGNESIUM 1.4 mg/dl (1.7-2.5); PHOSPHORUS 4.2 mg/dl (2.5-4.9); POTASSIUM 3.1 mmol/L (3.5-5.1); SODIUM 145 mmol/L (135-144)
[2018-01-23] MEDS: DOCUSATE SODIUM 100 MG CAP PO ×2 (08:42→21:04)
[2018-01-23] MEDS: SALMETEROL/FLUTICASONE 250/50 INHA INH ×2 (08:43→21:05)
[2018-01-23] MEDS: DEXTROSE 5%-0.45% NACL 1,000 ML IV (11:57)
[2018-01-23] MEDS ORDERED: POTASSIUM CHLORIDE 100 ML IVPB (13:00)
[2018-01-23] MEDS: DIPHENHYDRAMINE 50 MG INJ IV (13:06)
[2018-01-23] MEDS: MAGNESIUM SULFATE 3 GM in DEXTROSE 5% 100 ML IVPB (13:17)
[2018-01-23] MEDS: POTASSIUM CHLORIDE 100 ML IVPB ×3 (17:49→22:39)
[2018-01-24] MEDS: DEXTROSE 5%-0.45% NACL 1,000 ML IV ×3 (00:30→12:14)
[2018-01-24] MEDS: PANTOPRAZOLE 40 MG INJ IV ×2 (05:53→17:16)
[2018-01-24 06:54] LABS: ALBUMIN 3.6 g/dl (3.3-4.9); ANION GAP 13 (8-16); BLOOD UREA NITROGEN 2 mg/dl (7-20); CARBON DIOXIDE 29 mmol/L (21-31); CHLORIDE 106 mmol/L (97-110); CREATININE 0.44 mg/dl (0.44-1.00); GLUCOSE 90 mg/dl (70-220); MAGNESIUM 1.9 mg/dl (1.7-2.5); PHOSPHORUS 4.3 mg/dl (2.5-4.9); POTASSIUM 3.3 mmol/L (3.5-5.1); SODIUM 145 mmol/L (135-144)
[2018-01-24] MEDS: DOCUSATE SODIUM 100 MG CAP PO ×2 (08:24→21:00)
[2018-01-24] MEDS: SALMETEROL/FLUTICASONE 250/50 INHA INH ×2 (08:24→21:13)
[2018-01-24] MEDS: HYDROmorphONE 0.5 MG/0.5 ML SYG IV ×3 (14:40→23:56)
[2018-01-24] MEDS ORDERED: LIDOCAINE 1% (MPF) 5 ML VIAL SC (15:00)
[2018-01-24] MEDS: DIPHENHYDRAMINE 50 MG INJ IV (16:36)
[2018-01-25] MEDS: DEXTROSE 5%-0.45% NACL 1,000 ML IV ×2 (01:30→06:04)
[2018-01-25] MEDS: HYDROmorphONE 0.5 MG/0.5 ML SYG IV ×4 (04:42→18:37)
[2018-01-25] MEDS: PANTOPRAZOLE 40 MG INJ IV ×2 (05:26→18:37)
[2018-01-25 06:14] LABS: ANION GAP 20 (8-16); BLOOD UREA NITROGEN 4 mg/dl (7-20); CALCIUM 9.2 mg/dl (8.4-10.2); CARBON DIOXIDE 24 mmol/L (21-31); CHLORIDE 103 mmol/L (97-110); CREATININE 0.49 mg/dl (0.44-1.00); GLUCOSE 68 mg/dl (70-220); MAGNESIUM 1.6 mg/dl (1.7-2.5); PHOSPHORUS 4.5 mg/dl (2.5-4.9); POTASSIUM 3.3 mmol/L (3.5-5.1); SODIUM 144 mmol/L (135-144)
[2018-01-25] MEDS: SALMETEROL/FLUTICASONE 250/50 INHA INH ×2 (08:46→20:35)
[2018-01-25] MEDS: DOCUSATE SODIUM 100 MG CAP PO ×2 (08:47→20:35)
[2018-01-25] MEDS: DIPHENHYDRAMINE 50 MG INJ IV ×2 (10:04→20:36)
[2018-01-25] MEDS: POTASSIUM CHLORIDE 100 ML IVPB ×3 (15:56→20:35)
[2018-01-25] MEDS: MAGNESIUM SULFATE 3 GM in DEXTROSE 5% 100 ML IVPB (15:56)
[2018-01-26] MEDS: HYDROmorphONE 0.5 MG/0.5 ML SYG IV ×6 (00:27→21:47)
[2018-01-26] MEDS: DEXTROSE 5%-0.45% NACL 1,000 ML IV ×2 (00:28→13:45)
[2018-01-26] MEDS: PANTOPRAZOLE 40 MG INJ IV ×2 (05:17→17:26)
[2018-01-26 05:39] LABS: ALANINE AMINOTRANSFERASE 39 IU/L (13-69); ALBUMIN 3.4 g/dl (3.3-4.9); ALBUMIN/GLOBULIN RATIO 1.06; ALKALINE PHOSPHATASE 72 IU/L (42-121); ANION GAP 13 (8-16); ASPARTATE AMINO TRANSFERASE 20 IU/L (15-46); BILIRUBIN,INDIRECT 0.2 mg/dl (0-1.1); BILIRUBIN,TOTAL 0.2 mg/dl (0.2-1.3); CALCIUM 8.6 mg/dl (8.4-10.2); CARBON DIOXIDE 27 mmol/L (21-31); CHLORIDE 107 mmol/L (97-110); CREATININE 0.44 mg/dl (0.44-1.00); GLUCOSE 211 mg/dl (70-220); POTASSIUM 4.1 mmol/L (3.5-5.1); SODIUM 143 mmol/L (135-144); TOTAL PROTEIN 6.6 g/dl (6.1-8.1)
[2018-01-26] MEDS: DIPHENHYDRAMINE 50 MG INJ IV ×3 (05:40→19:57)
[2018-01-26 05:44] LABS: ALBUMIN 3.4 g/dl (3.3-4.9); ANION GAP 15 (8-16); CALCIUM 8.7 mg/dl (8.4-10.2); CARBON DIOXIDE 27 mmol/L (21-31); CHLORIDE 106 mmol/L (97-110); CREATININE 0.46 mg/dl (0.44-1.00); GLUCOSE 212 mg/dl (70-220); MAGNESIUM 1.9 mg/dl (1.7-2.5); PHOSPHORUS 3.7 mg/dl (2.5-4.9); POTASSIUM 4.1 mmol/L (3.5-5.1); SODIUM 144 mmol/L (135-144)
[2018-01-26 05:46] LABS: PREALBUMIN 8.7 mg/dl (17.6-36.0)
[2018-01-26 06:14] LABS: BLOOD UREA NITROGEN < 2 mg/dl (7-20)
[2018-01-26 06:15] LABS: BLOOD UREA NITROGEN < 2 mg/dl (7-20)
[2018-01-26] MEDS: DOCUSATE SODIUM 100 MG CAP PO ×2 (08:00→20:02)
[2018-01-26] MEDS: SALMETEROL/FLUTICASONE 250/50 INHA INH ×2 (08:55→20:32)
[2018-01-26] MEDS: TPN 1,000 ML IV (15:23)
[2018-01-27] MEDS: ACCU-CHEK XX ×6 (01:17→21:00)
[2018-01-27] MEDS: HYDROmorphONE 0.5 MG/0.5 ML SYG IV ×5 (03:27→20:49)
[2018-01-27] MEDS: PANTOPRAZOLE 40 MG INJ IV ×2 (05:19→17:33)
[2018-01-27 07:25] LABS: ALANINE AMINOTRANSFERASE 30 IU/L (13-69); ALBUMIN 3.6 g/dl (3.3-4.9); ALBUMIN/GLOBULIN RATIO 1.09; ALKALINE PHOSPHATASE 69 IU/L (42-121); ANION GAP 15 (8-16); ASPARTATE AMINO TRANSFERASE 19 IU/L (15-46); BILIRUBIN,INDIRECT 0.3 mg/dl (0-1.1); BILIRUBIN,TOTAL 0.3 mg/dl (0.2-1.3); BLOOD UREA NITROGEN 7 mg/dl (7-20); CARBON DIOXIDE 29 mmol/L (21-31); CHLORIDE 107 mmol/L (97-110); CREATININE 0.47 mg/dl (0.44-1.00); GLUCOSE 99 mg/dl (70-220); MAGNESIUM 1.6 mg/dl (1.7-2.5); POTASSIUM 4.1 mmol/L (3.5-5.1); SODIUM 147 mmol/L (135-144); TOTAL PROTEIN 6.9 g/dl (6.1-8.1)
[2018-01-27] MEDS: DOCUSATE SODIUM 100 MG CAP PO ×2 (08:26→19:49)
[2018-01-27] MEDS: SALMETEROL/FLUTICASONE 250/50 INHA INH ×2 (08:28→19:50)
[2018-01-27] MEDS: DIPHENHYDRAMINE 50 MG INJ IV ×2 (13:36→19:49)
[2018-01-27] MEDS: TPN 1,000 ML IV (14:01)
[2018-01-27] MEDS: FAT EMULSION 20% 250 ML IV (15:36)
[2018-01-27] MEDS: MAGNESIUM SULFATE 1 GM/D5W 100 ML IVPB (16:49)
[2018-01-28] MEDS: HYDROmorphONE 0.5 MG/0.5 ML SYG IV ×5 (00:50→21:45)
[2018-01-28] MEDS: ACCU-CHEK XX ×6 (01:00→20:41)
[2018-01-28] MEDS: DIPHENHYDRAMINE 50 MG INJ IV ×2 (02:52→18:57)
[2018-01-28] MEDS: TPN 1,000 ML IV ×3 (04:03→17:24)
[2018-01-28] MEDS: PANTOPRAZOLE 40 MG INJ IV ×2 (05:22→17:16)
[2018-01-28 07:17] LABS: PHOSPHORUS 3.7 mg/dl (2.5-4.9)
[2018-01-28 07:23] LABS: ALANINE AMINOTRANSFERASE 26 IU/L (13-69); ALBUMIN 3.5 g/dl (3.3-4.9); ALBUMIN/GLOBULIN RATIO 1.02; ALKALINE PHOSPHATASE 71 IU/L (42-121); ANION GAP 16 (8-16); ASPARTATE AMINO TRANSFERASE 15 IU/L (15-46); BILIRUBIN,INDIRECT 0.2 mg/dl (0-1.1); BILIRUBIN,TOTAL 0.2 mg/dl (0.2-1.3); BLOOD UREA NITROGEN 13 mg/dl (7-20); CALCIUM 9.3 mg/dl (8.4-10.2); CARBON DIOXIDE 26 mmol/L (21-31); CHLORIDE 107 mmol/L (97-110); CREATININE 0.44 mg/dl (0.44-1.00); GLUCOSE 90 mg/dl (70-220); MAGNESIUM 1.7 mg/dl (1.7-2.5); POTASSIUM 4.3 mmol/L (3.5-5.1); SODIUM 145 mmol/L (135-144); TOTAL PROTEIN 6.9 g/dl (6.1-8.1)
[2018-01-28] MEDS: ALTEPLASE (CATHFLO) 2 MG INJ CATHETER (08:01)
[2018-01-28] MEDS: DOCUSATE SODIUM 100 MG CAP PO ×2 (08:02→20:39)
[2018-01-28] MEDS: SALMETEROL/FLUTICASONE 250/50 INHA INH ×2 (09:29→20:39)
[2018-01-28] MEDS: FAT EMULSION 20% 250 ML IV (10:27)
[2018-01-29] MEDS: TPN 1,000 ML IV ×3 (00:03→23:57)
[2018-01-29] MEDS: ACCU-CHEK XX ×6 (01:27→21:54)
[2018-01-29] MEDS: HYDROmorphONE 0.5 MG/0.5 ML SYG IV ×5 (02:21→20:04)
[2018-01-29] MEDS: PANTOPRAZOLE 40 MG INJ IV ×2 (05:07→17:12)
[2018-01-29 05:38] LABS: ALANINE AMINOTRANSFERASE 30 IU/L (13-69); ALBUMIN 3.5 g/dl (3.3-4.9); ALBUMIN/GLOBULIN RATIO 0.97; ALKALINE PHOSPHATASE 70 IU/L (42-121); ANION GAP 15 (8-16); ASPARTATE AMINO TRANSFERASE 21 IU/L (15-46); BILIRUBIN,INDIRECT 0.1 mg/dl (0-1.1); BILIRUBIN,TOTAL 0.1 mg/dl (0.2-1.3); BLOOD UREA NITROGEN 15 mg/dl (7-20); CALCIUM 9.2 mg/dl (8.4-10.2); CARBON DIOXIDE 27 mmol/L (21-31); CHLORIDE 107 mmol/L (97-110); CREATININE 0.42 mg/dl (0.44-1.00); GLUCOSE 97 mg/dl (70-220); MAGNESIUM 1.8 mg/dl (1.7-2.5); POTASSIUM 3.8 mmol/L (3.5-5.1); SODIUM 145 mmol/L (135-144); TOTAL PROTEIN 7.1 g/dl (6.1-8.1)
[2018-01-29 05:43] LABS: PHOSPHORUS 3.9 mg/dl (2.5-4.9)
[2018-01-29] MEDS: DOCUSATE SODIUM 100 MG CAP PO ×2 (09:00→21:00)
[2018-01-29] MEDS: SALMETEROL/FLUTICASONE 250/50 INHA INH ×2 (09:02→20:04)
[2018-01-29] MEDS: FAT EMULSION 20% 250 ML IV (09:04)
[2018-01-29] MEDS: DIPHENHYDRAMINE 50 MG INJ IV (12:11)
[2018-01-30] MEDS: HYDROmorphONE 0.5 MG/0.5 ML SYG IV ×5 (00:40→20:43)
[2018-01-30] MEDS: ACCU-CHEK XX ×6 (01:00→22:00)
[2018-01-30] MEDS: DIPHENHYDRAMINE 50 MG INJ IV ×3 (02:26→23:00)
[2018-01-30 05:38] LABS: ANION GAP 16 (8-16); BLOOD UREA NITROGEN 17 mg/dl (7-20); CALCIUM 9.4 mg/dl (8.4-10.2); CARBON DIOXIDE 24 mmol/L (21-31); CHLORIDE 108 mmol/L (97-110); GLUCOSE 94 mg/dl (70-220); MAGNESIUM 1.8 mg/dl (1.7-2.5); PHOSPHORUS 3.8 mg/dl (2.5-4.9); POTASSIUM 4.2 mmol/L (3.5-5.1); SODIUM 144 mmol/L (135-144); TRIGLYCERIDES 154 mg/dl (0-149)
[2018-01-30] MEDS: PANTOPRAZOLE 40 MG INJ IV ×2 (05:39→17:07)
[2018-01-30] MEDS: FAT EMULSION 20% 250 ML IV (05:40)
[2018-01-30 06:11] LABS: PREALBUMIN 15.1 mg/dl (17.6-36.0)
[2018-01-30] MEDS: DOCUSATE SODIUM 100 MG CAP PO ×2 (07:49→21:00)
[2018-01-30] MEDS: SALMETEROL/FLUTICASONE 250/50 INHA INH ×2 (08:17→22:06)
[2018-01-30] MEDS: TPN 1,000 ML IV (09:45)
[2018-01-30] MEDS ORDERED: DIATR MEGLU/DIATRIZOATE SODIUM 120 ML BTL (14:15)
[2018-01-31] MEDS: ACCU-CHEK XX ×6 (01:00→21:01)
[2018-01-31] MEDS: HYDROmorphONE 0.5 MG/0.5 ML SYG IV ×6 (01:20→22:35)
[2018-01-31] MEDS: TPN 1,000 ML IV ×3 (03:33→21:34)
[2018-01-31] MEDS: PANTOPRAZOLE 40 MG INJ IV ×3 (04:54→17:19)
[2018-01-31] MEDS: ONDANSETRON 4 MG INJ IV (05:01)
[2018-01-31 06:36] LABS: ANION GAP 17 (8-16); BLOOD UREA NITROGEN 21 mg/dl (7-20); CALCIUM 9.4 mg/dl (8.4-10.2); CARBON DIOXIDE 24 mmol/L (21-31); CHLORIDE 107 mmol/L (97-110); CREATININE 0.45 mg/dl (0.44-1.00); GLUCOSE 84 mg/dl (70-220); MAGNESIUM 1.9 mg/dl (1.7-2.5); PHOSPHORUS 3.9 mg/dl (2.5-4.9); POTASSIUM 4.2 mmol/L (3.5-5.1); SODIUM 144 mmol/L (135-144)
[2018-01-31] MEDS: DOCUSATE SODIUM 100 MG CAP PO ×2 (07:58→21:01)
[2018-01-31] MEDS: SALMETEROL/FLUTICASONE 250/50 INHA INH ×2 (08:13→21:01)
[2018-01-31] MEDS: FAT EMULSION 20% 250 ML IV (09:42)
[2018-01-31] MEDS: DIPHENHYDRAMINE 50 MG INJ IV ×2 (15:17→21:34)
[2018-02-01] MEDS: ACCU-CHEK XX ×6 (01:12→21:00)
[2018-02-01] MEDS: HYDROmorphONE 0.5 MG/0.5 ML SYG IV ×5 (02:41→20:14)
[2018-02-01] MEDS: PANTOPRAZOLE 40 MG INJ IV ×2 (05:12→17:34)
[2018-02-01 07:23] LABS: ANION GAP 14 (8-16); BLOOD UREA NITROGEN 17 mg/dl (7-20); CARBON DIOXIDE 26 mmol/L (21-31); CHLORIDE 109 mmol/L (97-110); CREATININE 0.46 mg/dl (0.44-1.00); GLUCOSE 101 mg/dl (70-220); MAGNESIUM 1.7 mg/dl (1.7-2.5); PHOSPHORUS 3.5 mg/dl (2.5-4.9); POTASSIUM 4.4 mmol/L (3.5-5.1); SODIUM 145 mmol/L (135-144); TRIGLYCERIDES 104 mg/dl (0-149)
[2018-02-01] MEDS: DIPHENHYDRAMINE 50 MG INJ IV ×3 (08:24→23:16)
[2018-02-01] MEDS: DOCUSATE SODIUM 100 MG CAP PO ×2 (08:24→20:14)
[2018-02-01] MEDS: SALMETEROL/FLUTICASONE 250/50 INHA INH ×2 (08:24→20:14)
[2018-02-01] MEDS: FAT EMULSION 20% 250 ML IV (09:41)
[2018-02-01] MEDS: TPN 1,000 ML IV ×2 (14:18→22:27)
[2018-02-01] MEDS: ALTEPLASE (CATHFLO) 2 MG INJ CATHETER (14:42)
[2018-02-02] MEDS: HYDROmorphONE 0.5 MG/0.5 ML SYG IV ×6 (00:16→21:50)
[2018-02-02] MEDS: ACCU-CHEK XX ×6 (01:00→21:00)
[2018-02-02] MEDS: PANTOPRAZOLE 40 MG INJ IV ×2 (05:22→17:25)
[2018-02-02] MEDS: TPN 1,000 ML IV (06:13)
[2018-02-02] MEDS: DIPHENHYDRAMINE 50 MG INJ IV ×3 (06:23→23:35)
[2018-02-02] MEDS: SALMETEROL/FLUTICASONE 250/50 INHA INH ×2 (08:32→21:15)
[2018-02-02] MEDS: DOCUSATE SODIUM 100 MG CAP PO ×2 (08:32→21:15)
[2018-02-02] MEDS: FAT EMULSION 20% 250 ML IV (09:05)
[2018-02-03] MEDS: ACCU-CHEK XX ×6 (01:00→20:15)
[2018-02-03] MEDS: HYDROmorphONE 0.5 MG/0.5 ML SYG IV ×5 (01:57→20:05)
[2018-02-03] MEDS: TPN 1,000 ML IV ×2 (03:03→19:50)
[2018-02-03] MEDS: PANTOPRAZOLE 40 MG INJ IV ×2 (05:28→18:27)
[2018-02-03 06:06] LABS: ANION GAP 17 (8-16); BLOOD UREA NITROGEN 5 mg/dl (7-20); CALCIUM 8.9 mg/dl (8.4-10.2); CARBON DIOXIDE 24 mmol/L (21-31); CHLORIDE 109 mmol/L (97-110); GLUCOSE 80 mg/dl (70-220); MAGNESIUM 1.3 mg/dl (1.7-2.5); PHOSPHORUS 4.4 mg/dl (2.5-4.9); POTASSIUM 4.2 mmol/L (3.5-5.1); SODIUM 146 mmol/L (135-144)
[2018-02-03 06:32] LABS: TRIGLYCERIDES 131 mg/dl (0-149)
[2018-02-03] MEDS: DOCUSATE SODIUM 100 MG CAP PO ×2 (08:29→20:10)
[2018-02-03] MEDS: SALMETEROL/FLUTICASONE 250/50 INHA INH ×2 (08:29→20:11)
[2018-02-03] MEDS: FAT EMULSION 20% 250 ML IV (08:31)
[2018-02-03] MEDS: DIPHENHYDRAMINE 50 MG INJ IV ×2 (09:15→21:02)
[2018-02-03] MEDS: MAGNESIUM SULFATE 3 GM in DEXTROSE 5% 100 ML IVPB (17:31)
[2018-02-04] MEDS: HYDROmorphONE 0.5 MG/0.5 ML SYG IV ×6 (00:08→22:23)
[2018-02-04] MEDS: ACCU-CHEK XX ×5 (01:00→17:00)
[2018-02-04] MEDS: PANTOPRAZOLE 40 MG INJ IV ×2 (05:09→17:49)
[2018-02-04] MEDS: DIPHENHYDRAMINE 50 MG INJ IV ×2 (06:12→14:21)
[2018-02-04 07:00] LABS: ALBUMIN 3.1 g/dl (3.3-4.9); ANION GAP 12 (8-16); BLOOD UREA NITROGEN 9 mg/dl (7-20); CALCIUM 8.5 mg/dl (8.4-10.2); CARBON DIOXIDE 28 mmol/L (21-31); CHLORIDE 110 mmol/L (97-110); GLUCOSE 91 mg/dl (70-220); MAGNESIUM 1.8 mg/dl (1.7-2.5); POTASSIUM 4.1 mmol/L (3.5-5.1); SODIUM 146 mmol/L (135-144)
[2018-02-04] MEDS: TPN 1,000 ML IV ×2 (07:39→14:11)
[2018-02-04] MEDS: FAT EMULSION 20% 250 ML IV (07:59)
[2018-02-04] MEDS: SALMETEROL/FLUTICASONE 250/50 INHA INH ×2 (09:10→21:28)
[2018-02-04] MEDS: DOCUSATE SODIUM 100 MG CAP PO ×2 (09:10→21:28)
[2018-02-04] MEDS ORDERED: ACCU-CHEK XX (21:00)
[2018-02-05] MEDS: DIPHENHYDRAMINE 50 MG INJ IV ×3 (00:19→23:58)
[2018-02-05] MEDS: HYDROmorphONE 0.5 MG/0.5 ML SYG IV ×5 (04:02→20:42)
[2018-02-05] MEDS: ACCU-CHEK XX ×5 (06:00→23:57)
[2018-02-05] MEDS: TPN 1,000 ML IV ×2 (06:11→23:56)
[2018-02-05] MEDS: PANTOPRAZOLE 40 MG INJ IV ×2 (06:12→17:44)
[2018-02-05 06:42] LABS: ANION GAP 13 (8-16); BLOOD UREA NITROGEN 11 mg/dl (7-20); CALCIUM 8.5 mg/dl (8.4-10.2); CARBON DIOXIDE 27 mmol/L (21-31); CHLORIDE 110 mmol/L (97-110); GLUCOSE 97 mg/dl (70-220); POTASSIUM 4.1 mmol/L (3.5-5.1); SODIUM 146 mmol/L (135-144)
[2018-02-05 06:45] LABS: ALBUMIN 3.1 g/dl (3.3-4.9); ANION GAP 12 (8-16); BLOOD UREA NITROGEN 11 mg/dl (7-20); CALCIUM 8.5 mg/dl (8.4-10.2); CARBON DIOXIDE 27 mmol/L (21-31); CHLORIDE 111 mmol/L (97-110); GLUCOSE 97 mg/dl (70-220); MAGNESIUM 1.5 mg/dl (1.7-2.5); PHOSPHORUS 3.9 mg/dl (2.5-4.9); SODIUM 146 mmol/L (135-144)
[2018-02-05] MEDS: SALMETEROL/FLUTICASONE 250/50 INHA INH ×2 (08:20→20:34)
[2018-02-05] MEDS: DOCUSATE SODIUM 100 MG CAP PO ×2 (08:21→20:35)
[2018-02-05] MEDS: FAT EMULSION 20% 250 ML IV (08:23)
[2018-02-06] MEDS: HYDROmorphONE 0.5 MG/0.5 ML SYG IV ×6 (01:05→22:01)
[2018-02-06] MEDS: PANTOPRAZOLE 40 MG INJ IV ×2 (05:00→17:50)
[2018-02-06] MEDS: ACCU-CHEK XX ×3 (05:05→17:40)
[2018-02-06] MEDS: DIPHENHYDRAMINE 50 MG INJ IV ×3 (07:00→21:38)
[2018-02-06 08:52] LABS: ALBUMIN 3.6 g/dl (3.3-4.9); ANION GAP 15 (8-16); BLOOD UREA NITROGEN 11 mg/dl (7-20); CALCIUM 8.8 mg/dl (8.4-10.2); CARBON DIOXIDE 26 mmol/L (21-31); CHLORIDE 110 mmol/L (97-110); CREATININE 0.44 mg/dl (0.44-1.00); GLUCOSE 67 mg/dl (70-220); MAGNESIUM 1.7 mg/dl (1.7-2.5); POTASSIUM 4.7 mmol/L (3.5-5.1); SODIUM 146 mmol/L (135-144)
[2018-02-06 08:57] LABS: PREALBUMIN 19.7 mg/dl (17.6-36.0)
[2018-02-06] MEDS: FAT EMULSION 20% 250 ML IV (09:15)
[2018-02-06] MEDS: SALMETEROL/FLUTICASONE 250/50 INHA INH ×2 (09:15→21:37)
[2018-02-06] MEDS: DOCUSATE SODIUM 100 MG CAP PO ×2 (09:15→21:37)
[2018-02-06] MEDS: TPN 1,000 ML IV (17:49)
[2018-02-07] MEDS: ACCU-CHEK XX ×4 (00:55→17:56)
[2018-02-07] MEDS: HYDROmorphONE 0.5 MG/0.5 ML SYG IV ×6 (02:48→22:37)
[2018-02-07] MEDS: DIPHENHYDRAMINE 50 MG INJ IV ×3 (04:43→19:22)
[2018-02-07] MEDS: PANTOPRAZOLE 40 MG INJ IV ×2 (06:08→17:56)
[2018-02-07] MEDS: TPN 1,000 ML IV (06:09)
[2018-02-07 07:50] LABS: ANION GAP 11 (8-16); BLOOD UREA NITROGEN 11 mg/dl (7-20); CALCIUM 8.8 mg/dl (8.4-10.2); CARBON DIOXIDE 29 mmol/L (21-31); CHLORIDE 107 mmol/L (97-110); CREATININE 0.46 mg/dl (0.44-1.00); GLUCOSE 86 mg/dl (70-220); MAGNESIUM 1.6 mg/dl (1.7-2.5); PHOSPHORUS 3.7 mg/dl (2.5-4.9); POTASSIUM 4.4 mmol/L (3.5-5.1); SODIUM 143 mmol/L (135-144)
[2018-02-07] MEDS: DOCUSATE SODIUM 100 MG CAP PO ×2 (08:56→20:29)
[2018-02-07] MEDS: SALMETEROL/FLUTICASONE 250/50 INHA INH ×2 (08:56→20:29)
[2018-02-07] MEDS: FAT EMULSION 20% 250 ML IV (12:55)
[2018-02-08] MEDS: MAGNESIUM SULFATE 2 GM/50 ML 50 ML IVPB (01:05)
[2018-02-08] MEDS: DIPHENHYDRAMINE 50 MG INJ IV ×3 (01:22→21:04)
[2018-02-08] MEDS: HYDROmorphONE 0.5 MG/0.5 ML SYG IV ×5 (04:45→23:52)
[2018-02-08 05:28] LABS: ANION GAP 15 (8-16); BLOOD UREA NITROGEN 7 mg/dl (7-20); CARBON DIOXIDE 30 mmol/L (21-31); CHLORIDE 105 mmol/L (97-110); CREATININE 0.49 mg/dl (0.44-1.00); GLUCOSE 85 mg/dl (70-220); MAGNESIUM 2.3 mg/dl (1.7-2.5); PHOSPHORUS 5.5 mg/dl (2.5-4.9); POTASSIUM 4.6 mmol/L (3.5-5.1); SODIUM 145 mmol/L (135-144)
[2018-02-08] MEDS: PANTOPRAZOLE 40 MG INJ IV ×2 (06:04→17:33)
[2018-02-08 06:27] LABS: TRIGLYCERIDES 110 mg/dl (0-149)
[2018-02-08] MEDS: SALMETEROL/FLUTICASONE 250/50 INHA INH ×2 (10:21→20:18)
[2018-02-08] MEDS: DOCUSATE SODIUM 100 MG CAP PO ×2 (10:22→20:18)
[2018-02-09] MEDS: HYDROmorphONE 0.5 MG/0.5 ML SYG IV ×4 (04:14→16:32)
[2018-02-09] MEDS: PANTOPRAZOLE 40 MG INJ IV (06:09)
[2018-02-09] MEDS: DIPHENHYDRAMINE 50 MG INJ IV ×2 (06:09→12:59)
[2018-02-09] MEDS: DOCUSATE SODIUM 100 MG CAP PO (08:18)
[2018-02-09] MEDS: SALMETEROL/FLUTICASONE 250/50 INHA INH (08:19)
[2018-02-09] MEDS ORDERED: HYDROCODONE/APAP (5/325) TAB PO (11:00)
[2018-02-10] MEDS ORDERED: PANTOPRAZOLE (EC) 40 MG TAB PO (06:00)
== END 2018-02-09 19:40 | disposition home health service (06) | DRG 389 ==
LOC: PP2 12-29 00:33 → E/R 21:51
PROC: 0DP6XUZ Removal of Feeding Device from Stomach, External Approach (ICD-10-PCS; 2018-01-06)
PROC: 02HV33Z Insertion of Infusion Device into Superior Vena Cava, Percutaneous Approach (ICD-10-PCS; principal; 2018-01-25)
DX: K56.690 Other partial intestinal obstruction (principal); E44.0 Moderate protein-calorie malnutrition; E87.8 Other disorders of electrolyte and fluid balance, not elsewhere classified; F17.200 Nicotine dependence, unspecified, uncomplicated; J45.909 Unspecified asthma, uncomplicated; Z68.20 Body mass index [BMI] 20.0-20.9, adult; D64.9 Anemia, unspecified; Z97.8 Presence of other specified devices; S36.899D Unspecified injury of other intra-abdominal organs, subsequent encounter; V04.9 Pedestrian injured in collision with heavy transport vehicle or bus, unspecified whether traffic or nontraffic accident; R53.81 Other malaise
CPT/HCPCS: 36415; 36569; 71045; 74018; 74176; 74250; 76937; 80048; 80053; 80061; 80069; 82962; 83036; 83690; 83735; 84100; 84134; 84443; 84478; 84703; 85025; 85610; 85730; 87081; 90686; 96374; 96375; 96376; 97110; 97116; 97163; 97530; 99285-25